=== PATIENT | female | born 1990 | race African-American/Black ===

== ENCOUNTER 2018-02-23 10:15 | Emergency (ER) | payer SELFPAY ==
[2018-02-23 10:23] VITALS: BP 135/90; PULSE 81; TEMP 98.2; BMI 24.7
[2018-02-23] MEDS ORDERED: predniSONE 20 MG TABLET (UD) PO ONE (11:15)
--- NOTE | 2018-02-23 11:15 | PDOC ---
History of Present Illness - General Chief Complaint: Asthma Stated Complaint: ASTHMA,SOB Time Seen by Provider: 02/23/18 11:09 History Source: Patient Exam Limitations: No Limitations - History of Present Illness Initial Comments: CHIEF COMPLAINT: 27 y/o afebrile female with PMH asthma c/o congested cough x 1 week. HISTORY OF PRESENT ILLNESS: The patient denies fever, chills, FLORES, n/v/d, earache, sore throat, nasal congestion, CP, SOB, abd pain. She does not have her albuterol inhaler. Vital signs on arrival are within normal limits. REVIEW OF SYSTEMS: GENERAL/CONSTITUTIONAL: No fever/chills. No weakness. No weight change. HEAD, EYES, EARS, NOSE AND THROAT: No change in vision. No ear pain or discharge. No sore throat. CARDIOVASCULAR: No chest pain or shortness of breath. RESPIRATORY: +congested cough. +chest congestion. No wheezing or hemoptysis. GASTROINTESTINAL: No nausea, vomiting, diarrhea. GENITOURINARY: No dysuria, frequency, or change in urination. MUSCULOSKELETAL: No joint or muscle swelling or pain. No neck or back pain. SKIN: No rash or easy bruising. NEUROLOGIC: No headache, vertigo, loss of consciousness, or loss of sensation. PHYSICAL EXAM: GENERAL: The patient is awake, alert, and fully oriented, in no acute distress. SHe is well appearing with a nasal sounding voice. HEAD: Normal with no signs of trauma. No TTP of sinuses. ENT: Pupils equal, round and reactive to light, extraocular movements intact, sclera anicteric, conjunctiva clear. LUNGS: Expiratory wheezing across all lung lino. Normal excursion. No respiratory distress or use of accessory muscles. CV: RRR, S1/S2, no MRG. Cap refill < 2 sec. ABDOMEN: Soft, non-distended, non-tender even to deep palpation, no hepatomegaly or splenomegaly, no masses. EXTREMITIES: Normal range of motion, no edema. NEUROLOGICAL: Normal speech, normal gait. CN II-XII grossly intact. SKIN: Warm, dry, normal turgor, no rashes or lesions noted. Past History - Past Medical History Allergies/Adverse Reactions: Allergies Allergy/AdvReac Type Severity Reaction Status Date / Time No Known Allergies Allergy Verified 05/11/14 06:24 Home Medications: Ambulatory Orders Amox-Tr/K Cl [Augmentin 875-125mg Tablet -] 1 tab PO BID 05/09/14 Lipase/Protease/Amylase [Raphael Narayanan 36,000 Units Capsule] 1 each PO TID 05/09/14 Metoclopramide HCl [Reglan] 10 mg PO TID 05/09/14 Pantoprazole Sodium [Protonix] 40 mg PO DAILY 05/09/14 Albuterol Sulfate Inhaler - [Ventolin HFA Inhaler -] 1 - 2 inh PO Q4H #1 inhaler 02/23/18 Methylprednisolone [Medrol Dose Rohith] 4 mg PO ASDIR #21 tablet 02/23/18 Anemia: No Asthma: Yes Cancer: No Cardiac Disorders: No COPD: No CHF: No GI Disorders: Yes (gerd) HTN: No - Surgical History Appendectomy: Yes Cardiac Surgery: No Lung Surgery: No - Reproductive History (#): 2 Para: 1 - Immunization History Td Vaccination: Yes Immunization Up to Date: No - Suicide/Smoking/Psychosocial Hx Smoking Status: No Smoking History: Current every day smoker Years of Tobacco Use: 8 (quit in 2012) Have you smoked in the past 12 months: No Number of Cigarettes Smoked Daily: 4 If you are a former smoker, when did you quit?: 2012 Cigars Per Day: 0 Information on smoking cessation initiated: No Hx Alcohol Use: No Drug/Substance Use Hx: Yes (MARIJUANA) Substance Use Type: None, Marijuana *Physical Exam - Vital Signs Last Vital Signs Temp Pulse Resp BP Pulse Ox 98.2 F 81 16 135/90 99 02/23/18 10:20 02/23/18 10:20 02/23/18 10:20 02/23/18 10:20 02/23/18 10:20 Moderate Sedation - Procedure Monitoring Vital Signs: Procedure Monitoring Vital Signs Temperature 98.2 F 02/23/18 10:20 Pulse Rate 81 02/23/18 10:20 Respiratory Rate 16 02/23/18 10:20 Blood Pressure 135/90 02/23/18 10:20 O2 Sat by Pulse Oximetry (%) 99 02/23/18 10:20 Medical Decision Making - Medical Decision Making A/P: 27 y/o female with asthma exacerbation with URI. Plan is as follows: 1. Duoneb x 3 2. PO prednisone Patient's lung sounds still congested but much improved. pt wants to go home. Will send rx for medrol dose pack and albuterol neb. The patient verbalizes understanding of all instructions, has no further questions and is awaiting discharge. *DC/Admit/Observation/Transfer Diagnosis at time of Disposition: Asthma exacerbation Qualifiers: Asthma severity: moderate Asthma persistence: unspecified Qualified Code(s): J45.901 - Unspecified asthma with (acute) exacerbation URI (upper respiratory infection) Qualifiers: URI type: unspecified viral URI Qualified Code(s): J06.9 - Acute upper respiratory infection, unspecified - Discharge Dispostion Disposition: HOME Condition at time of disposition: Improved - Prescriptions Prescriptions: Albuterol Sulfate Inhaler - [Ventolin HFA Inhaler -] 1 - 2 inh PO Q4H #1 inhaler Methylprednisolone [Medrol Dose Rohith] 4 mg PO ASDIR #21 tablet - Referrals - Patient Instructions Printed Discharge Instructions: DI for Asthma -- Adult, DI for Viral Upper Respiratory Infection -- Adult Additional Instructions: Discharge Instructions: -2 prescriptions have been sent to your pharmacy; please take as prescribed -Return to the ER with any worsening or concerning symptoms - Post Discharge Activity
[2018-02-23] MEDS ORDERED: predniSONE 20 MG TABLET (UD) ONE (11:16)
[2018-02-23] MEDS ORDERED: ALBUTEROL SO4 2.5/IPRATROPIUM 0.5 INH SOL 3 ML VIAL.NEB. NEB ONE ×2 (11:16→11:57)
[2018-02-23] MEDS: ALBUTEROL SO4 2.5/IPRATROPIUM 0.5 INH SOL 3 ML VIAL.NEB. NEB SCH ×3 (11:19→12:02)
== END 2018-02-23 12:26 | disposition home or self-care (01) ==
LOC: JERFT 10:15
PROC: 3E0F7GC Introduction of Other Therapeutic Substance into Respiratory Tract, Via Natural or Artificial Opening (ICD-10-PCS; principal; 2018-02-23)
DX: J45.901 Unspecified asthma with (acute) exacerbation (principal); J06.9 Acute upper respiratory infection, unspecified
CPT/HCPCS: 99281-25

== ENCOUNTER 2022-02-02 00:20 | Emergency (ER) | payer OTHER ==
[2022-02-02 00:30] VITALS: BP 126/78; PULSE 74; RESP 14; TEMP 98.2; BMI 32.1
[2022-02-02] MEDS ORDERED: IBUPROFEN 400 MG TABLET (FP) PO ONE ×2 (00:50→00:57)
== END 2022-02-02 01:01 | disposition home or self-care (01) ==
LOC: FER 00:20
DX: M79.642 Pain in left hand (principal)
CPT/HCPCS: 73140-TC-LT-FY; 99283-25

== ENCOUNTER 2023-03-19 12:29 | Emergency (ER) | payer OTHER ==
[2023-03-19 12:33] VITALS: BP 137/81; PULSE 78; RESP 18; TEMP 98.8; BMI 32.1
[2023-03-19] MEDS ORDERED: IBUPROFEN 600 MG TABLET (FP) PO ONE ×2 (13:32→13:58)
== END 2023-03-19 14:41 | disposition home or self-care (01) ==
LOC: JERFT 12:29
DX: M79.10 Myalgia, unspecified site (principal); R53.83 Other fatigue; Z20.822 Contact with and (suspected) exposure to COVID-19
CPT/HCPCS: 0241U-QW; 99283-25